=== PATIENT | male | born 1950 | race Caucasian/White ===

== ENCOUNTER 2018-03-27 12:44 | Inpatient (IN) | payer SELFPAY ==
[~2018-03-27] VITALS: Ht 172.7 cm; Wt 70.0 kg
[2018-03-27] MEDS ORDERED: LEVO25TA9 PO (13:15)
[2018-03-27] MEDS ORDERED: ST.300CA PO (13:15)
[2018-03-27] MEDS ORDERED: ALBU8HFA IH (13:15)
[2018-03-27] MEDS ORDERED: PRED1 PO (13:15)
[2018-03-27] MEDS ORDERED: AUD NEB (13:15)
[2018-03-27] MEDS ORDERED: ALBUTEROL SULFATE 5 MG/ML 20 ML NEB SOLN [BULK] NEB ONE ×2 (14:00→16:45)
[2018-03-27] MEDS ORDERED: IPRATROPIUM BROMIDE 0.5 MG/2.5 ML NEB SOLUTION NEB ONE ×2 (14:00→16:45)
[2018-03-27] MEDS ORDERED: 0.9% SODIUM CHLORIDE 5 ML NEB SOLUTION NEB ONE (14:08)
[2018-03-27 14:25] LABS: BASOPHILS % (AUTO) 0.5 % (0.0-2.0); HEMATOCRIT 46.8 % (41-53); HEMOGLOBIN 15.8 g/dL (13.5-17.5); LYMPHOCYTES # (AUTO) 0.8 K/uL (1.0-4.8); LYMPHOCYTES % (AUTO) 8.8 % (22.0-44.0); MEAN CORPUSCULAR HEMOGLOBIN 31.2 pg (26.0-34.0); MEAN CORPUSCULAR HGB CONC 33.7 G/dL (31.0-37.0); MEAN CORPUSCULAR VOLUME 93 fL (80-100); MONOCYTES # (AUTO) 0.5 K/uL (0.1-1.0); MONOCYTES % (AUTO) 5.9 % (2.0-9.0); NEUTROPHILS # (AUTO) 7.6 K/uL (1.8-7.7); NEUTROPHILS % (AUTO) 83.8 % (40.0-70.0); PLATELET COUNT (AUTO) 369 K/uL (150-450); RED BLOOD CELL COUNT(AUTO) 5.06 MIL/uL (4.50-5.90); RED CELL DISTRIBUTION WIDTH 15.4 % (11.5-14.5)
[2018-03-27 14:43] LABS: ANION GAP 4 mmol/L (8-16); CALCIUM, TOTAL 9.7 mg/dL (8.8-10.5); CARBON DIOXIDE 32 mmol/L (22-29); CHLORIDE 101 mmol/L (98-107); CREATININE 0.88 mg/dL (0.60-1.30); GLOMERULAR FILTR. RATE CALC > 60 mL/min (>60); GLUCOSE,RANDOM 156 mg/dL (70-110); POTASSIUM 4.4 mmol/L (3.5-5.1); SODIUM SERUM 137 mmol/L (136-145); UREA NITROGEN, BLOOD 12 mg/dL (7-18)
[2018-03-27 14:45] LABS: INR 1.1 (0.9-1.1); PROTHROMBIN TIME 11.5 SEC (9.4-11.6)
[2018-03-27 14:50] LABS: ALANINE AMINOTRANSFERASE 25 U/L (12-78); ALBUMIN 3.1 g/dL (3.4-5.0); ALKALINE PHOSPHATASE 66 U/L (46-116); ASPARTATE AMINOTRANSFERASE 20 U/L (15-37); BILIRUBIN,TOTAL 0.4 mg/dL (0.1-1.0); TOTAL PROTEIN, SERUM 7.5 g/dL (6.4-8.2)
[2018-03-27] MEDS ORDERED: MethylPREDNISolone SOD SUCC 125 MG/2 ML VIAL IVP ONE (15:00)
[2018-03-27 15:16] LABS: B-TYPE NATRIURETIC PEPTIDE 17 pg/mL (0-100)
[2018-03-27] MEDS ORDERED: SODIUM CHLORIDE 0.9% 1,000 ML IV ONE (16:45)
[2018-03-27] MEDS ORDERED: 0.9% SODIUM CHLORIDE 15 ML NEB SOLUTION NEB ONE (17:01)
[2018-03-27] MEDS ORDERED: 0.9% SODIUM CHLORIDE 10 ML SYRINGE IVP PRN ×2 (19:15→21:30)
[2018-03-27] MEDS ORDERED: ACETAMINOPHEN 325 MG TABLET PO PRN ×2 (19:15→21:30)
[2018-03-27] MEDS ORDERED: ALBUTEROL SULFATE 2.5 MG/0.5 ML NEB SOLUTION NEB SCH (21:30)
[2018-03-27] MEDS ORDERED: IPRATROPIUM BROMIDE 0.5 MG/2.5 ML NEB SOLUTION NEB SCH (21:30)
[2018-03-27] MEDS ORDERED: ZOLPIDEM TARTRATE 5 MG TABLET PO PRN (21:30)
[2018-03-27] MEDS ORDERED: IPRATROPIUM BROMIDE 0.5 MG/2.5 ML NEB SOLUTION NEB PRN (21:30)
[2018-03-27] MEDS ORDERED: ONDANSETRON HCL 4 MG/2 ML VIAL IVP PRN (21:30)
[2018-03-27] MEDS ORDERED: ALBUTEROL SULFATE 2.5 MG/0.5 ML NEB SOLUTION NEB PRN (21:30)
[2018-03-27 21:47] VITALS: BP 98/56
[2018-03-27] MEDS ORDERED: SODIUM CHLORIDE 0.9% 250 ML IV ONE (22:44)
[2018-03-27] MEDS: CefTRIAXone SODIUM 1 GM in DEXTROSE 5%-WATER 10 ML IV SCH (23:00)
[2018-03-27] MEDS: AZITHROMYCIN 500 MG/NS 250 ML IV SCH (23:14)
[2018-03-27] MEDS: MethylPREDNISolone SOD SUCC 125 MG/2 ML VIAL IVP SCH (23:15)
[2018-03-27] MEDS: HEPARIN SODIUM,PORCINE 5,000 UNITS/ML VIAL SQ SCH (23:15)
[2018-03-28] VITALS (7 sets, daily range): BP systolic 89–123; BP diastolic 55–65
[2018-03-28] MEDS: ALBUTEROL SULFATE 2.5 MG/0.5 ML NEB SOLUTION NEB SCH ×4 (01:46→19:19)
[2018-03-28] MEDS: IPRATROPIUM BROMIDE 0.5 MG/2.5 ML NEB SOLUTION NEB SCH ×4 (01:46→19:19)
[2018-03-28] MEDS: LEVOTHYROXINE SODIUM 25 MCG TABLET PO SCH (05:22)
[2018-03-28 06:30] LABS: BASOPHILS % (AUTO) 0.1 % (0.0-2.0); EOSINOPHILS % (AUTO) 0 % (1.0-6.0); HEMATOCRIT 42.5 % (41-53); HEMOGLOBIN 14.4 g/dL (13.5-17.5); LYMPHOCYTES # (AUTO) 0.4 K/uL (1.0-4.8); LYMPHOCYTES % (AUTO) 4.5 % (22.0-44.0); MEAN CORPUSCULAR HEMOGLOBIN 31.3 pg (26.0-34.0); MEAN CORPUSCULAR HGB CONC 33.9 G/dL (31.0-37.0); MEAN CORPUSCULAR VOLUME 93 fL (80-100); MONOCYTES # (AUTO) 0.2 K/uL (0.1-1.0); MONOCYTES % (AUTO) 2.3 % (2.0-9.0); NEUTROPHILS # (AUTO) 8.5 K/uL (1.8-7.7); PLATELET COUNT (AUTO) 341 K/uL (150-450); RED BLOOD CELL COUNT(AUTO) 4.59 MIL/uL (4.50-5.90); RED CELL DISTRIBUTION WIDTH 15.3 % (11.5-14.5)
[2018-03-28 06:56] LABS: NEUTROPHILS % (AUTO) 93.1 % (40.0-70.0)
[2018-03-28 07:10] LABS: ALANINE AMINOTRANSFERASE 20 U/L (12-78); ALBUMIN 2.8 g/dL (3.4-5.0); ALKALINE PHOSPHATASE 60 U/L (46-116); ANION GAP 4 mmol/L (8-16); ASPARTATE AMINOTRANSFERASE 11 U/L (15-37); BILIRUBIN,TOTAL 0.3 mg/dL (0.1-1.0); CALCIUM, TOTAL 9.6 mg/dL (8.8-10.5); CARBON DIOXIDE 30 mmol/L (22-29); CHLORIDE 105 mmol/L (98-107); CREATININE 0.75 mg/dL (0.60-1.30); GLOMERULAR FILTR. RATE CALC > 60 mL/min (>60); GLUCOSE,RANDOM 153 mg/dL (70-110); POTASSIUM 4.1 mmol/L (3.5-5.1); SODIUM SERUM 139 mmol/L (136-145); TOTAL PROTEIN, SERUM 6.9 g/dL (6.4-8.2); UREA NITROGEN, BLOOD 13 mg/dL (7-18)
[2018-03-28] MEDS: DOCUSATE SODIUM 100 MG CAPSULE PO SCH ×2 (08:33→21:57)
[2018-03-28] MEDS: PANTOPRAZOLE SODIUM 40 MG/VIAL IVP SCH (08:34)
[2018-03-28] MEDS: MethylPREDNISolone SOD SUCC 125 MG/2 ML VIAL IVP SCH ×2 (08:34→16:56)
[2018-03-28] MEDS: HEPARIN SODIUM,PORCINE 5,000 UNITS/ML VIAL SQ SCH ×2 (08:34→16:55)
[2018-03-28] MEDS ORDERED: SERTRALINE HCL 50 MG TABLET PO ONE (18:00)
[2018-03-28] MEDS: CefTRIAXone SODIUM 1 GM in DEXTROSE 5%-WATER 10 ML IV SCH (21:57)
[2018-03-28] MEDS: AZITHROMYCIN 500 MG/NS 250 ML IV SCH (23:03)
[2018-03-29] MEDS: MethylPREDNISolone SOD SUCC 125 MG/2 ML VIAL IVP SCH ×5 (00:27→23:23)
[2018-03-29] MEDS: HEPARIN SODIUM,PORCINE 5,000 UNITS/ML VIAL SQ SCH ×4 (00:28→23:23)
[2018-03-29] MEDS: ALBUTEROL SULFATE 2.5 MG/0.5 ML NEB SOLUTION NEB SCH ×4 (03:11→19:48)
[2018-03-29] MEDS: IPRATROPIUM BROMIDE 0.5 MG/2.5 ML NEB SOLUTION NEB SCH ×4 (03:11→19:48)
[2018-03-29 04:00] VITALS: BP 109/68
[2018-03-29] MEDS: LEVOTHYROXINE SODIUM 25 MCG TABLET PO SCH (06:09)
[2018-03-29 06:38] LABS: BASOPHILS % (AUTO) 0.1 % (0.0-2.0); EOSINOPHILS % (AUTO) 0 % (1.0-6.0); HEMATOCRIT 40.1 % (41-53); HEMOGLOBIN 13.5 g/dL (13.5-17.5); LYMPHOCYTES # (AUTO) 0.4 K/uL (1.0-4.8); LYMPHOCYTES % (AUTO) 2.3 % (22.0-44.0); MEAN CORPUSCULAR HGB CONC 33.5 G/dL (31.0-37.0); MEAN CORPUSCULAR VOLUME 93 fL (80-100); MONOCYTES # (AUTO) 0.6 K/uL (0.1-1.0); MONOCYTES % (AUTO) 3.2 % (2.0-9.0); NEUTROPHILS # (AUTO) 16.4 K/uL (1.8-7.7); PLATELET COUNT (AUTO) 324 K/uL (150-450); RED BLOOD CELL COUNT(AUTO) 4.34 MIL/uL (4.50-5.90); RED CELL DISTRIBUTION WIDTH 15.8 % (11.5-14.5)
[2018-03-29 06:55] LABS: NEUTROPHILS % (AUTO) 94.4 % (40.0-70.0)
[2018-03-29 07:01] LABS: ANION GAP 5 mmol/L (8-16); CALCIUM, TOTAL 9.8 mg/dL (8.8-10.5); CARBON DIOXIDE 31 mmol/L (22-29); CHLORIDE 103 mmol/L (98-107); CREATININE 0.82 mg/dL (0.60-1.30); GLOMERULAR FILTR. RATE CALC > 60 mL/min (>60); GLUCOSE,RANDOM 149 mg/dL (70-110); POTASSIUM 4.2 mmol/L (3.5-5.1); SODIUM SERUM 139 mmol/L (136-145); UREA NITROGEN, BLOOD 16 mg/dL (7-18)
[2018-03-29 07:08] VITALS: BP 95/56
[2018-03-29] MEDS: PANTOPRAZOLE SODIUM 40 MG/VIAL IVP SCH (09:26)
[2018-03-29] MEDS: DOCUSATE SODIUM 100 MG CAPSULE PO SCH ×2 (09:26→20:32)
[2018-03-29 11:50] VITALS: BP 104/60
[2018-03-29 15:42] VITALS: BP 121/75
[2018-03-29] MEDS: SERTRALINE HCL 50 MG TABLET PO SCH (19:27)
[2018-03-29 19:55] VITALS: BP 108/71
[2018-03-29] MEDS: CefTRIAXone SODIUM 1 GM in DEXTROSE 5%-WATER 10 ML IV SCH (22:21)
[2018-03-29] MEDS: AZITHROMYCIN 500 MG/NS 250 ML IV SCH (23:23)
[2018-03-29 23:36] VITALS: BP 98/60
[2018-03-30] MEDS: IPRATROPIUM BROMIDE 0.5 MG/2.5 ML NEB SOLUTION NEB SCH ×3 (01:37→14:29)
[2018-03-30] MEDS: ALBUTEROL SULFATE 2.5 MG/0.5 ML NEB SOLUTION NEB SCH ×3 (01:38→14:29)
[2018-03-30 04:42] VITALS: BP 94/48
[2018-03-30] MEDS: MethylPREDNISolone SOD SUCC 125 MG/2 ML VIAL IVP SCH ×2 (05:27→12:10)
[2018-03-30] MEDS: LEVOTHYROXINE SODIUM 25 MCG TABLET PO SCH (05:27)
[2018-03-30] MEDS: HEPARIN SODIUM,PORCINE 5,000 UNITS/ML VIAL SQ SCH (07:57)
[2018-03-30] MEDS: PANTOPRAZOLE SODIUM 40 MG/VIAL IVP SCH (07:57)
[2018-03-30] MEDS: SERTRALINE HCL 50 MG TABLET PO SCH (07:58)
[2018-03-30 08:10] VITALS: BP 107/61
[2018-03-30] MEDS: DOCUSATE SODIUM 100 MG CAPSULE PO SCH (08:43)
[2018-03-30 10:16] LABS: ORGANISM ID Not indicated.; S PNEUMO SOURCE Urine; STREP PNEUMONIAE AG URINE Negative (Negative); STREP.PNEUMO BODY FLUID CULT. Not Indicated
[2018-03-30 11:34] VITALS: BP 117/70
[2018-03-30] MEDS ORDERED: PREDNISONE PO ×2 (15:18→15:22)
[2018-03-30] MEDS ORDERED: ZOLOFT PO (15:24)
[2018-03-30 15:37] VITALS: BP 128/80
[2018-03-30] MEDS ORDERED: COMBIVENT PO (15:38)
[2018-03-30] MEDS ORDERED: ALBUTEROL PO (15:38)
[2018-03-30] MEDS ORDERED: COMBIVENT IH (15:47)
[2018-03-30] MEDS ORDERED: ALBUTEROL NEB (15:47)
== END 2018-03-30 17:00 | disposition home or self-care (01) | DRG 190 ==
LOC: EMS 12:46 → 5N 20:07 → 6N 03-28 22:50
PROVIDERS: ADMIT Internal Medicine; ATTEND Internal Medicine
DX: J44.1 Chronic obstructive pulmonary disease with (acute) exacerbation (principal); J18.9 Pneumonia, unspecified organism; J45.901 Unspecified asthma with (acute) exacerbation; F33.1 Major depressive disorder, recurrent, moderate; J44.0 Chronic obstructive pulmonary disease with (acute) lower respiratory infection; E03.9 Hypothyroidism, unspecified; I45.9 Conduction disorder, unspecified; I51.7 Cardiomegaly; I70.0 Atherosclerosis of aorta; J20.9 Acute bronchitis, unspecified; Z59.0 Homelessness; Z88.8 Allergy status to other drugs, medicaments and biological substances; Z79.899 Other long term (current) drug therapy; Z81.8 Family history of other mental and behavioral disorders
CPT/HCPCS: 83735; 84443; 87449; 87899; 93005; 93306; 94640; 94644; 96374; 99285; C9113; J0456; J0696; J1644; J2405; J2930; J7030; J7050; J7060

== ENCOUNTER 2019-02-23 20:17 | Emergency (ER) | payer SELFPAY ==
[~2019-02-23] VITALS: Ht 170.2 cm; Wt 75.5 kg
[~2019-02-23 20:17] MED LIST: ALBUTEROL NEB; COMBIVENT IH; LEVO25TA9 PO; PREDNISONE PO; ST.300CA PO; ZOLOFT PO
[2019-02-23] MEDS ORDERED: KETOROLAC TROMETHAMINE 30 MG/ML VIAL IM ONE (23:15)
[2019-02-24] MEDS ORDERED: IPRATROPIUM BROMIDE 0.5 MG/2.5 ML NEB SOLUTION NEB ONE ×2 (05:15→06:15)
[2019-02-24] MEDS ORDERED: ALBUTEROL SULFATE 2.5 MG/0.5 ML NEB SOLUTION NEB ONE ×2 (05:15→06:15)
[2019-02-24] MEDS ORDERED: 0.9% SODIUM CHLORIDE 5 ML NEB SOLUTION NEB ONE (06:17)
[2019-02-24 07:01] VITALS: BP 126/69
[2019-02-25] MEDS ORDERED: ESOM20CA31 PO (14:47)
[2019-02-25] MEDS ORDERED: AMOX1TAB16 PO (14:47)
[2019-02-25] MEDS ORDERED: SERT50TA12 PO (16:57)
[2019-02-25] MEDS ORDERED: AUD NEB (16:57)
[2019-02-25] MEDS ORDERED: IPRA4AER IH (16:57)
== END 2019-02-24 07:05 | disposition home or self-care (01) ==
LOC: EMS 20:18
DX: S22.41XA Multiple fractures of ribs, right side, initial encounter for closed fracture (principal); S82.832A Other fracture of upper and lower end of left fibula, initial encounter for closed fracture; S50.12XA Contusion of left forearm, initial encounter; J45.909 Unspecified asthma, uncomplicated; F32.9 Major depressive disorder, single episode, unspecified; E03.9 Hypothyroidism, unspecified; Z88.8 Allergy status to other drugs, medicaments and biological substances; W19.XXXA Unspecified fall, initial encounter; Y93.89 Activity, other specified; Y92.89 Other specified places as the place of occurrence of the external cause; Y99.8 Other external cause status
CPT/HCPCS: 29515; 71111; 73090; 73590; 94640; 96372; 99283; J1885

== ENCOUNTER 2019-02-25 14:29 | Inpatient (IN) | payer SELFPAY ==
[~2019-02-25] VITALS: Ht 172.7 cm; Wt 77.5 kg
[2019-02-25] MEDS ORDERED: MethylPREDNISolone SOD SUCC 125 MG/2 ML VIAL IVP ONE (14:45)
[2019-02-25] MEDS ORDERED: DEXTROSE 50%-WATER 25 GM/50 ML SYRINGE IVP ONE (14:45)
[2019-02-25] MEDS ORDERED: ESOM20CA31 PO (14:47)
[2019-02-25] MEDS ORDERED: AMOX1TAB16 PO (14:47)
[2019-02-25 14:54] LABS: GLUCOSE,POINT OF CARE 49 MG/DL (70-110)
[2019-02-25 15:06] LABS: BASOPHILS % (AUTO) 0.4 % (0.0-2.0); EOSINOPHILS % (AUTO) 5.9 % (1.0-6.0); HEMATOCRIT 38.1 % (41-53); HEMOGLOBIN 11.9 g/dL (13.5-17.5); LYMPHOCYTES # (AUTO) 2.3 K/uL (1.0-4.8); LYMPHOCYTES % (AUTO) 14.4 % (22.0-44.0); MEAN CORPUSCULAR HEMOGLOBIN 25.9 pg (26.0-34.0); MEAN CORPUSCULAR HGB CONC 31.2 G/dL (31.0-37.0); MEAN CORPUSCULAR VOLUME 83 fL (80-100); MONOCYTES # (AUTO) 1.4 K/uL (0.1-1.0); NEUTROPHILS # (AUTO) 11.2 K/uL (1.8-7.7); NEUTROPHILS % (AUTO) 70.3 % (40.0-70.0); PLATELET COUNT (AUTO) 404 K/uL (150-450); RED BLOOD CELL COUNT(AUTO) 4.59 MIL/uL (4.50-5.90); RED CELL DISTRIBUTION WIDTH 16.5 % (11.5-14.5)
[2019-02-25 15:34] LABS: GLUCOSE,POINT OF CARE 164 MG/DL (70-110)
[2019-02-25 15:54] LABS: ANION GAP 10 mmol/L (8-16); CALCIUM, TOTAL 8.8 mg/dL (8.8-10.5); CARBON DIOXIDE 26 mmol/L (22-29); CHLORIDE 99 mmol/L (98-107); CREATININE 0.91 mg/dL (0.60-1.30); GLOMERULAR FILTR. RATE CALC > 60 mL/min (>60); GLUCOSE,RANDOM 239 mg/dL (70-110); POTASSIUM 3.8 mmol/L (3.5-5.1); SODIUM SERUM 135 mmol/L (136-145); UREA NITROGEN, BLOOD 21 mg/dL (7-18)
[2019-02-25 15:56] LABS: B-TYPE NATRIURETIC PEPTIDE 39 pg/mL (0-100)
[2019-02-25] MEDS ORDERED: CefTRIAXone 1 GM/DEXTROSE 50 ML IV ONE (16:15)
[2019-02-25] MEDS ORDERED: AZITHROMYCIN 500 MG/NS 250 ML IV ONE (16:15)
[2019-02-25] MEDS ORDERED: SODIUM CHLORIDE 0.9% 1,000 ML IV ONE ×3 (16:15→16:30)
[2019-02-25 16:18] LABS: ALANINE AMINOTRANSFERASE 21 U/L (12-78); ALBUMIN 2.6 g/dL (3.4-5.0); ALKALINE PHOSPHATASE 72 U/L (46-116); ASPARTATE AMINOTRANSFERASE 22 U/L (15-37); BILIRUBIN,TOTAL 0.5 mg/dL (0.1-1.0); CREATINE KINASE, TOTAL ONLY 96 U/L (39-308); TOTAL PROTEIN, SERUM 6.9 g/dL (6.4-8.2)
[2019-02-25 16:57] LABS: INFLUENZA TYPE A NEGATIVE FOR TYPE A (NEGATIVE); INFLUENZA TYPE B NEGATIVE FOR TYPE B (NEGATIVE)
[2019-02-25] MEDS ORDERED: SERT50TA12 PO (16:57)
[2019-02-25] MEDS ORDERED: IPRA4AER IH (16:57)
[2019-02-25] MEDS ORDERED: AUD NEB (16:57)
[2019-02-25] MEDS ORDERED: 0.9% SODIUM CHLORIDE 10 ML SYRINGE IVP PRN ×2 (17:00→20:45)
[2019-02-25] MEDS ORDERED: ACETAMINOPHEN 325 MG TABLET PO PRN (17:00)
[2019-02-25] MEDS ORDERED: ONDANSETRON HCL 4 MG/2 ML VIAL IVP PRN ×2 (17:00→20:45)
[2019-02-25 17:36] LABS: LACTIC ACID 2.6 mmol/L (0.4-2.0)
[2019-02-25] MEDS ORDERED: MORPHINE SULFATE 4 MG/ML SYRINGE IVP ONE (18:30)
[2019-02-25 18:41] LABS: APPEARANCE,URINE CLEAR (CLEAR); BILIRUBIN,URINE NEGATIVE (NEGATIVE); GLUCOSE, URINE (UA) 500 mg/dL (NEGATIVE); KETONES,URINE 40 mg/dL (NEGATIVE); LEUKOCYTE ESTERASE ,URINE NEGATIVE (NEGATIVE); NITRATE,URINE NEGATIVE (NEGATIVE); OCCULT BLOOD,URINE NEGATIVE (NEGATIVE); PH,URINE 6.5 (5.0-8.0); PROTEIN,URINE TRACE (NEGATIVE); UROBILINOGEN,URINE 0.2 mg/dL (<=1.0)
[2019-02-25 19:10] LABS: BACTERIA,URINE None Seen /HPF (None Seen); RBC,URINE None Seen /HPF (0-2); WBC,URINE 0-2 /HPF (0-5)
[2019-02-25] MEDS ORDERED: ALBUTEROL SULFATE 2.5 MG/0.5 ML NEB SOLUTION NEB SCH (20:00)
[2019-02-25] MEDS ORDERED: IPRATROPIUM BROMIDE 0.5 MG/2.5 ML NEB SOLUTION NEB SCH (20:00)
[2019-02-25 23:12] VITALS: BP 94/43
[2019-02-25] MEDS: MethylPREDNISolone SOD SUCC 40 MG/ML VIAL IVP SCH (23:29)
[2019-02-25] MEDS: HEPARIN SODIUM,PORCINE 5,000 UNITS/ML VIAL SQ SCH (23:29)
[2019-02-26] MEDS ORDERED: PNEUMOCOCCAL VACCINE POLYVALENT 0.5 ML VIAL [PPSV23] IM ONE (00:30)
[2019-02-26] MEDS: IPRATROPIUM BROMIDE 0.5 MG/2.5 ML NEB SOLUTION NEB SCH ×4 (01:01→20:00)
[2019-02-26] MEDS: ALBUTEROL SULFATE 2.5 MG/0.5 ML NEB SOLUTION NEB SCH ×4 (01:01→20:00)
[2019-02-26] MEDS: ACETAMINOPHEN 325 MG TABLET PO PRN ×4 (01:08→19:25)
[2019-02-26] MEDS: ZOLPIDEM TARTRATE 5 MG TABLET PO PRN (01:08)
[2019-02-26 04:28] VITALS: BP 90/56
[2019-02-26] MEDS ORDERED: LORA-703 PO (04:31)
[2019-02-26] MEDS ORDERED: ATOR10TA69 PO (04:31)
[2019-02-26] MEDS ORDERED: FEXO180T94 PO (04:31)
[2019-02-26 05:56] LABS: BASOPHILS % (AUTO) 0.1 % (0.0-2.0); EOSINOPHILS % (AUTO) 0 % (1.0-6.0); HEMATOCRIT 34.9 % (41-53); LYMPHOCYTES # (AUTO) 0.7 K/uL (1.0-4.8); LYMPHOCYTES % (AUTO) 4.5 % (22.0-44.0); MEAN CORPUSCULAR HEMOGLOBIN 26.2 pg (26.0-34.0); MEAN CORPUSCULAR HGB CONC 31.6 G/dL (31.0-37.0); MEAN CORPUSCULAR VOLUME 83 fL (80-100); MONOCYTES # (AUTO) 0.3 K/uL (0.1-1.0); MONOCYTES % (AUTO) 2.2 % (2.0-9.0); NEUTROPHILS # (AUTO) 13.4 K/uL (1.8-7.7); PLATELET COUNT (AUTO) 382 K/uL (150-450); RED BLOOD CELL COUNT(AUTO) 4.21 MIL/uL (4.50-5.90); RED CELL DISTRIBUTION WIDTH 16.3 % (11.5-14.5)
[2019-02-26 06:36] LABS: NEUTROPHILS % (AUTO) 93.2 % (40.0-70.0)
[2019-02-26 06:59] LABS: ALANINE AMINOTRANSFERASE 17 U/L (12-78); ALBUMIN 2.3 g/dL (3.4-5.0); ALKALINE PHOSPHATASE 63 U/L (46-116); ANION GAP 10 mmol/L (8-16); ASPARTATE AMINOTRANSFERASE 17 U/L (15-37); BILIRUBIN,TOTAL 0.3 mg/dL (0.1-1.0); CALCIUM, TOTAL 8.6 mg/dL (8.8-10.5); CARBON DIOXIDE 22 mmol/L (22-29); CHLORIDE 104 mmol/L (98-107); CREATININE 0.91 mg/dL (0.60-1.30); GLOMERULAR FILTR. RATE CALC > 60 mL/min (>60); GLUCOSE,RANDOM 201 mg/dL (70-110); POTASSIUM 4.2 mmol/L (3.5-5.1); SODIUM SERUM 136 mmol/L (136-145); TOTAL PROTEIN, SERUM 6.4 g/dL (6.4-8.2)
[2019-02-26 07:08] LABS: UREA NITROGEN, BLOOD 17 mg/dL (7-18)
[2019-02-26 07:21] VITALS: BP 101/54
[2019-02-26] MEDS: PANTOPRAZOLE SODIUM 40 MG/VIAL IVP SCH (08:30)
[2019-02-26] MEDS: HEPARIN SODIUM,PORCINE 5,000 UNITS/ML VIAL SQ SCH ×3 (08:30→23:59)
[2019-02-26] MEDS: MethylPREDNISolone SOD SUCC 40 MG/ML VIAL IVP SCH ×2 (08:30→20:35)
[2019-02-26] MEDS ORDERED: MethylPREDNISolone SOD SUCC 125 MG/2 ML VIAL IVP ONE (11:00)
[2019-02-26 11:18] VITALS: BP 99/57
[2019-02-26 12:14] LABS: LACTIC ACID 2.4 mmol/L (0.4-2.0)
[2019-02-26] MEDS ORDERED: LEVO75 PO (12:29)
[2019-02-26] MEDS ORDERED: [UNRECOGNIZED DRUG - OTHER] PO PRN (12:30)
[2019-02-26] MEDS ORDERED: [UNRECOGNIZED DRUG - REMARK] PO SCH (13:00)
[2019-02-26] MEDS: LEVOTHYROXINE SODIUM 75 MCG TABLET PO SCH (13:10)
[2019-02-26] MEDS: SERTRALINE HCL 50 MG TABLET PO SCH (13:10)
[2019-02-26] MEDS: FEXOFENADINE HCL 60 MG TABLET PO SCH (13:10)
[2019-02-26] MEDS: BUDESONIDE 0.5 MG/2 ML NEB SOLUTION NEB SCH ×3 (13:23→22:00)
[2019-02-26 15:13] VITALS: BP 97/56
[2019-02-26] MEDS ORDERED: SODIUM CHLORIDE 0.9% 100 ML ONE (16:37)
[2019-02-26] MEDS: CefTRIAXone 1 GM/DEXTROSE 50 ML IV SCH (16:55)
[2019-02-26] MEDS: AZITHROMYCIN 500 MG/NS 250 ML IV SCH (17:46)
[2019-02-26] MEDS: IPRATROPIUM BROMIDE 0.5 MG/2.5 ML NEB SOLUTION NEB PRN ×2 (18:01→22:00)
[2019-02-26] MEDS: ALBUTEROL SULFATE 2.5 MG/0.5 ML NEB SOLUTION NEB PRN ×2 (18:01→22:00)
[2019-02-26 20:31] VITALS: BP 92/56
[2019-02-27] VITALS (7 sets, daily range): BP systolic 100–110; BP diastolic 56–61
[2019-02-27] MEDS: ACETAMINOPHEN 325 MG TABLET PO PRN (00:04)
[2019-02-27] MEDS: ZOLPIDEM TARTRATE 5 MG TABLET PO PRN (00:04)
[2019-02-27] MEDS: ALBUTEROL SULFATE 2.5 MG/0.5 ML NEB SOLUTION NEB SCH ×4 (02:01→20:00)
[2019-02-27] MEDS: IPRATROPIUM BROMIDE 0.5 MG/2.5 ML NEB SOLUTION NEB SCH ×4 (02:01→20:00)
[2019-02-27] MEDS ORDERED: FLUT220HFA IH (05:59)
[2019-02-27] MEDS ORDERED: MONT10TA21 PO (05:59)
[2019-02-27] MEDS ORDERED: CALC250T2 PO (05:59)
[2019-02-27 06:03] LABS: EOSINOPHILS % (AUTO) 0 % (1.0-6.0); HEMATOCRIT 33.8 % (41-53); HEMOGLOBIN 10.7 g/dL (13.5-17.5); LYMPHOCYTES # (AUTO) 0.7 K/uL (1.0-4.8); LYMPHOCYTES % (AUTO) 3.8 % (22.0-44.0); MEAN CORPUSCULAR HGB CONC 31.6 G/dL (31.0-37.0); MEAN CORPUSCULAR VOLUME 82 fL (80-100); MONOCYTES # (AUTO) 1.1 K/uL (0.1-1.0); MONOCYTES % (AUTO) 5.6 % (2.0-9.0); NEUTROPHILS # (AUTO) 17.3 K/uL (1.8-7.7); PLATELET COUNT (AUTO) 372 K/uL (150-450); RED CELL DISTRIBUTION WIDTH 16.5 % (11.5-14.5)
[2019-02-27] MEDS: LEVOTHYROXINE SODIUM 75 MCG TABLET PO SCH (06:39)
[2019-02-27 06:44] LABS: NEUTROPHILS % (AUTO) 90.6 % (40.0-70.0)
[2019-02-27] MEDS: FEXOFENADINE HCL 60 MG TABLET PO SCH (08:50)
[2019-02-27] MEDS: PANTOPRAZOLE SODIUM 40 MG/VIAL IVP SCH (08:50)
[2019-02-27] MEDS: SERTRALINE HCL 50 MG TABLET PO SCH (08:50)
[2019-02-27] MEDS: HEPARIN SODIUM,PORCINE 5,000 UNITS/ML VIAL SQ SCH ×2 (08:50→15:36)
[2019-02-27] MEDS: MethylPREDNISolone SOD SUCC 40 MG/ML VIAL IVP SCH (08:50)
[2019-02-27] MEDS ORDERED: SERTRALINE HCL 50 MG TABLET PO SCH (09:00)
[2019-02-27] MEDS: IPRATROPIUM BROMIDE 0.5 MG/2.5 ML NEB SOLUTION NEB PRN ×2 (10:07→23:40)
[2019-02-27] MEDS: BUDESONIDE 0.5 MG/2 ML NEB SOLUTION NEB SCH ×2 (10:07→21:00)
[2019-02-27] MEDS: ALBUTEROL SULFATE 2.5 MG/0.5 ML NEB SOLUTION NEB PRN ×2 (10:07→23:40)
[2019-02-27] MEDS: CefTRIAXone 1 GM/DEXTROSE 50 ML IV SCH (15:31)
[2019-02-27] MEDS: AZITHROMYCIN 500 MG/NS 250 ML IV SCH (16:38)
[2019-02-27] MEDS: MAGNESIUM HYDROXIDE SUSPENSION 30 ML UDCUP PO PRN (16:38)
[2019-02-27] MEDS: ALBUTEROL SULFATE/IPRATROPIUM 100-20 MCG/SPRAY 4 GM INHALER IH PRN (18:10)
[2019-02-27] MEDS: MONTELUKAST SODIUM 10 MG TABLET PO SCH (20:45)
[2019-02-27] MEDS: DOCUSATE SODIUM 100 MG CAPSULE PO SCH (20:45)
[2019-02-27] MEDS: ATORVASTATIN CALCIUM 10 MG TABLET PO SCH (20:45)
[2019-02-28] MEDS: HEPARIN SODIUM,PORCINE 5,000 UNITS/ML VIAL SQ SCH ×4 (00:18→23:53)
[2019-02-28] MEDS: ZOLPIDEM TARTRATE 5 MG TABLET PO PRN ×2 (00:25→22:14)
[2019-02-28] MEDS: ACETAMINOPHEN 325 MG TABLET PO PRN ×2 (00:25→22:14)
[2019-02-28] MEDS: ALBUTEROL SULFATE 2.5 MG/0.5 ML NEB SOLUTION NEB SCH ×4 (02:00→21:01)
[2019-02-28] MEDS: IPRATROPIUM BROMIDE 0.5 MG/2.5 ML NEB SOLUTION NEB SCH ×4 (02:00→20:59)
[2019-02-28 05:01] VITALS: BP 99/63
[2019-02-28] MEDS: LEVOTHYROXINE SODIUM 75 MCG TABLET PO SCH (06:33)
[2019-02-28] MEDS: ALBUTEROL SULFATE/IPRATROPIUM 100-20 MCG/SPRAY 4 GM INHALER IH PRN (06:53)
[2019-02-28 07:05] VITALS: BP 98/63
[2019-02-28 07:08] LABS: BASOPHILS % (AUTO) 0.4 % (0.0-2.0); EOSINOPHILS % (AUTO) 1.1 % (1.0-6.0); HEMATOCRIT 33.5 % (41-53); HEMOGLOBIN 10.7 g/dL (13.5-17.5); LYMPHOCYTES # (AUTO) 1.2 K/uL (1.0-4.8); LYMPHOCYTES % (AUTO) 10.5 % (22.0-44.0); MEAN CORPUSCULAR HEMOGLOBIN 26.1 pg (26.0-34.0); MEAN CORPUSCULAR VOLUME 82 fL (80-100); MONOCYTES # (AUTO) 1.2 K/uL (0.1-1.0); MONOCYTES % (AUTO) 9.9 % (2.0-9.0); NEUTROPHILS # (AUTO) 9.1 K/uL (1.8-7.7); NEUTROPHILS % (AUTO) 78.1 % (40.0-70.0); PLATELET COUNT (AUTO) 392 K/uL (150-450); RED BLOOD CELL COUNT(AUTO) 4.11 MIL/uL (4.50-5.90); RED CELL DISTRIBUTION WIDTH 16.5 % (11.5-14.5)
[2019-02-28 07:24] LABS: ALANINE AMINOTRANSFERASE 34 U/L (12-78); ALBUMIN 2.4 g/dL (3.4-5.0); ALKALINE PHOSPHATASE 67 U/L (46-116); ANION GAP 5 mmol/L (8-16); ASPARTATE AMINOTRANSFERASE 26 U/L (15-37); BILIRUBIN,TOTAL 0.3 mg/dL (0.1-1.0); CALCIUM, TOTAL 9.5 mg/dL (8.8-10.5); CARBON DIOXIDE 29 mmol/L (22-29); CHLORIDE 106 mmol/L (98-107); CREATININE 0.86 mg/dL (0.60-1.30); GLOMERULAR FILTR. RATE CALC > 60 mL/min (>60); GLUCOSE,RANDOM 116 mg/dL (70-110); POTASSIUM 4.2 mmol/L (3.5-5.1); SODIUM SERUM 140 mmol/L (136-145); TOTAL PROTEIN, SERUM 6.3 g/dL (6.4-8.2); UREA NITROGEN, BLOOD 19 mg/dL (7-18)
[2019-02-28] MEDS: BUDESONIDE 0.5 MG/2 ML NEB SOLUTION NEB SCH ×2 (07:39→21:01)
[2019-02-28] MEDS: PANTOPRAZOLE SODIUM 40 MG/VIAL IVP SCH (08:32)
[2019-02-28] MEDS: CALCIUM OYSTER SHELL 500 MG TABLET PO SCH (08:33)
[2019-02-28] MEDS: SERTRALINE HCL 50 MG TABLET PO SCH (08:33)
[2019-02-28] MEDS: DOCUSATE SODIUM 100 MG CAPSULE PO SCH ×2 (08:33→20:31)
[2019-02-28] MEDS: FEXOFENADINE HCL 60 MG TABLET PO SCH (08:34)
[2019-02-28] MEDS: PredniSONE 20 MG TABLET PO SCH (08:34)
[2019-02-28 11:36] VITALS: BP 100/61
[2019-02-28] MEDS: MAGNESIUM HYDROXIDE SUSPENSION 30 ML UDCUP PO PRN (11:54)
[2019-02-28] MEDS ORDERED: CIP250 PO (14:59)
[2019-02-28] MEDS ORDERED: PRED20 PO (15:00)
[2019-02-28] MEDS ORDERED: IPRA4AER IH (15:03)
[2019-02-28] MEDS ORDERED: BISACODYL 10 MG RECTAL RECTAL SUPPOSITORY PR ONE (16:00)
[2019-02-28 16:22] VITALS: BP 98/58
[2019-02-28] MEDS: CefTRIAXone 1 GM/DEXTROSE 50 ML IV SCH (16:36)
[2019-02-28] MEDS: AZITHROMYCIN 500 MG/NS 250 ML IV SCH (18:01)
[2019-02-28 20:20] VITALS: BP 99/56
[2019-02-28] MEDS: MONTELUKAST SODIUM 10 MG TABLET PO SCH (20:31)
[2019-02-28] MEDS: ATORVASTATIN CALCIUM 10 MG TABLET PO SCH (20:31)
[2019-02-28 23:15] VITALS: BP 100/57
[2019-03-01] MEDS ORDERED: MAGNESIUM CITRATE 300 ML ORAL SOLUTION PO ONE (01:15)
[2019-03-01] MEDS: ALBUTEROL SULFATE 2.5 MG/0.5 ML NEB SOLUTION NEB SCH ×3 (02:13→15:29)
[2019-03-01] MEDS: IPRATROPIUM BROMIDE 0.5 MG/2.5 ML NEB SOLUTION NEB SCH ×3 (02:13→15:29)
[2019-03-01 04:20] VITALS: BP 106/51
[2019-03-01] MEDS: IPRATROPIUM BROMIDE 0.5 MG/2.5 ML NEB SOLUTION NEB PRN (05:01)
[2019-03-01] MEDS: ALBUTEROL SULFATE 2.5 MG/0.5 ML NEB SOLUTION NEB PRN (05:02)
[2019-03-01] MEDS: LEVOTHYROXINE SODIUM 75 MCG TABLET PO SCH (06:16)
[2019-03-01 07:11] VITALS: BP 94/58
[2019-03-01] MEDS: BUDESONIDE 0.5 MG/2 ML NEB SOLUTION NEB SCH (07:25)
[2019-03-01] MEDS: PANTOPRAZOLE SODIUM 40 MG/VIAL IVP SCH (08:54)
[2019-03-01] MEDS: FEXOFENADINE HCL 60 MG TABLET PO SCH (08:54)
[2019-03-01] MEDS: HEPARIN SODIUM,PORCINE 5,000 UNITS/ML VIAL SQ SCH ×2 (08:54→16:00)
[2019-03-01] MEDS: PredniSONE 20 MG TABLET PO SCH (08:54)
[2019-03-01] MEDS: CALCIUM OYSTER SHELL 500 MG TABLET PO SCH (08:54)
[2019-03-01] MEDS: SERTRALINE HCL 50 MG TABLET PO SCH (08:54)
[2019-03-01] MEDS: DOCUSATE SODIUM 100 MG CAPSULE PO SCH (08:55)
[2019-03-01 12:40] VITALS: BP 98/60
[2019-03-01] MEDS: CefTRIAXone 1 GM/DEXTROSE 50 ML IV SCH (16:00)
[2019-03-01 16:27] VITALS: BP 105/63
[2019-03-01] MEDS: AZITHROMYCIN 500 MG/NS 250 ML IV SCH (17:00)
== END 2019-03-01 18:15 | disposition home or self-care (01) | DRG 871 ==
LOC: EMS 14:29 → 5S 20:19
PROVIDERS: ADMIT Internal Medicine; ATTEND Internal Medicine
DX: A41.9 Sepsis, unspecified organism (principal); J18.9 Pneumonia, unspecified organism; J44.1 Chronic obstructive pulmonary disease with (acute) exacerbation; J44.0 Chronic obstructive pulmonary disease with (acute) lower respiratory infection; J45.901 Unspecified asthma with (acute) exacerbation; E03.9 Hypothyroidism, unspecified; F32.9 Major depressive disorder, single episode, unspecified; Z88.8 Allergy status to other drugs, medicaments and biological substances
CPT/HCPCS: 83036; 83605; 83735; 87040; 87804; 93005; 94640; 94660; 96365; 96366; 96368; 96375; 97116; 97162; 97166; 97530; 97535; 99291; C9113; G0378; J0456; J0696; J1644; J2270; J2920; J2930; J7030; J7050